=== PATIENT | male | born 1955 | race Hispanic/Latino ===

== ENCOUNTER 2016-07-31 01:51 | Inpatient (IN) | payer OTHER ==
--- NOTE | 2016-07-31 16:38 | PN- Att Addend ---
Attending Addendum Attending Brief Note Hospice Admission H&P Chief Complaint: admission for hospice Source: , very limited medical records from [facility] Exam Limitations: pt condition Associated Symptoms: apnea, restlessness History of Present Illness: 61 year old male with neuroendocrine pancreatic cancer transferred from [facility] for inpatient hospice care. Pt was diagnosed 15months ago with NE Pancreatic cancer following hospitalization for jaundice and transaminitis. Biliary stent was placed at the time when the tumor was found. Pt. underwent chemotherapy and radiation and had been stable until 2015 when he developed ascites after portal vein obstruction. According to , pt had steady deterioration since that time. He has a right pleurex catheter for ascites and this has been drained every other day for maximum 500cc. He was admitted to [facility] for short term rehabilitation and continued to decline, with poor food/fluid intake. He is now being transferred here for end- of-life symptom management. 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 Functional Ability: Required assistance for ADLs/IADLs prior to admission Exam and Diagnostic Data: Vital signs: T-98; HR-108; RR-19; BP-103/66 Physical Exam: General: unresponsive ill-appearing male, lying in bed, restless with periods of apnea Skin: W,D,I HEENT: PERRL. Own dentition in good repair, oral mucosa dry. Heart: RRR, S1S2. No murmur Lungs: Clear bilaterally, anteriorly. Periods of apnea to 30 sec. Port-a-cath right upper chest. Abdomen: Slightly distended, sluggish bowel sounds. Pleurex catheter right abdomen. Musculoskeletal: Bilateral lower extremity edema, nonpitting. Neuro/Psych: Unresponsive, moves b/l UEs spontaneously Labs/Imaging: None available Assessment/Plan: Pt is a 61-year-old male with neuroendocrine pancreatic cancer with malignant ascites and [id number], admitted for end-of-life symptom management. Will continue fentanyl patch 50mcg every 72 hours. Morphine 2mg IV/SQ every hour as needed for pain/dyspnea Ativan 1mg IV/SQ every 2 hours for restlessness Robinul 0.2mg IV/SQ every 4 hours prn congestion Drain right pleurex catheter every other day, draining no more than 500 mL each time.
[2016-08-02 06:23] VITALS: BP 90/54
--- NOTE | 2016-08-03 13:10 | Discharge Summary ---
Visit Information Visit Dates Admission Date: 07/31/16 Discharge Date: 08/02/16 Hospital Course Course Attending Physician: MALINDA BONILLA MD Primary Care Physician: FINESSE COLLIER MD Hospital Course: Pt is a 61-year-old male with neuroendocrine pancreatic cancer with malignant ascites and [id number], admitted for end-of-life symptom management. He was kept comfortable with a morphine drip, scopolamine and glycopyrrolate, lorazepam until he peacefully on 08/02/16. Allergies: Uncoded Allergies: Allergy Other SEASONAL Med Allergies N Disposition Summary Disposition Principal Diagnosis: Neuroendocrine pancreatic carcinoma Failure to thrive malignant ascites Additional Diagnosis: Hypertension Atrial fibrillation Discharge Disposition: Discharge Instructions General Discharge Information Code Status: Hospice Patient's Diet: N/A Patient's Activity: N/A Follow-Up Instructions/Appts: N/A Copies To: FINESSE COLLIER MD
== END 2016-08-02 11:35 | disposition expired | DRG 436 ==
LOC: 2NA 01:51
PROVIDERS: ADMIT Hospitalist
DX: C25.9 Malignant neoplasm of pancreas, unspecified (principal); R18.0 Malignant ascites; C7A.8 Other malignant neuroendocrine tumors; Z51.5 Encounter for palliative care; R62.7 Adult failure to thrive
CPT/HCPCS: 2NAP; J1642; J2270